=== PATIENT | female | born 1950 | race Caucasian/White ===

== ENCOUNTER 2021-10-06 19:32 | Inpatient (IN) ==
[2021-10-06] MEDS ORDERED: 0.9 % Sodium Chloride 1,000 ML IVC ONE (21:09)
[2021-10-06 21:11] LABS: Albumin 3.5 g/dL (3.5-5.7); Calcium 8.8 mg/dL (8.6-10.3); Globulin 3.4 g/dL (2.4-3.5); Total Protein 6.9 g/dL (6.4-8.9)
[2021-10-06 21:19] LABS: Basophils % 0.2 %; Eosinophils % 0.2 %; Hematocrit 41.6 % (35.3-44.9); Hemoglobin 13.7 g/dL (11.5-15.4); Immature Granulocytes % 0.3 % (0-4); Lymphocytes # 0.9 K/mcL (0.6-4.6); Lymphocytes % 6.9 %; Mean Corpuscular HGB Conc 32.9 g/dL (31.6-35.5); Mean Corpuscular Hemoglobin 31.3 pg (28.0-33.3); Mean Platelet Volume 10.1 fL (9.4-12.4); Monocytes # 1.3 K/mcL (0.0-1.3); Monocytes % 10.7 %; Neutrophils # 10.2 K/mcL (1.6-8.9); Nucleated Red Blood Cells 0.2 /100 WBC (0); Platelet Count 255 K/mcL (140-400); Red Blood Count 4.38 M/mcL (3.82-4.97); Red Cell Distribution Width 15.9 % (11.5-14.5); Segmented Neutrophils % 81.7 %; White Blood Count 12.5 K/mcL (4.3-11.1)
[2021-10-06] MEDS ORDERED: Azithromycin 500 MG in 0.9 % Sodium Chloride 250 ML IVPB ONE (22:44)
[2021-10-06] MEDS ORDERED: cefTRIAXone 1,000 MG in Water for inj. (sterile) 10 ML IVP ONE (22:44)
[2021-10-06] MEDS ORDERED: Furosemide 20 MG/2 ML VIAL IVP ONE (23:22)
[2021-10-07 03:10] LABS: Bilirubin,Urine Negative (Negative); Blood,Urine Trace-intact (Negative); Clarity,Urine Clear (Clear); Color,Urine Yellow (Yellow); Glucose,Urine (UA) Normal (Normal); Ketones,Urine Negative (Negative); Leukocyte Esterase,Urine Small (Negative); Nitrite,Urine Negative (Negative); Protein,Urine 30 mg/dL (Neg-Trace); Specific Gravity,Urine 1.025 (1.010-1.025); Urobilinogen,Urine Normal (Normal)
[2021-10-07 03:15] LABS: Bacteria,Urine Few per hpf (None-Few); Hyaline Casts,Urine Few per lpf (None Seen); RBC,Urine 0-3 per hpf (0-3); Squamous Epithelial Cell,Urine Moderate per hpf (None-Few); Transitional Epi Cells,Urine Few per hpf (None-Few); WBC,Urine 15-30 per hpf (0-3)
[2021-10-07 08:37] LABS: Basophils % 0.2 %; Eosinophils % 0.3 %; Hematocrit 40.8 % (35.3-44.9); Hemoglobin 13.2 g/dL (11.5-15.4); Immature Granulocytes % 0.4 % (0-4); Lymphocytes # 0.8 K/mcL (0.6-4.6); Lymphocytes % 7.2 %; Mean Corpuscular HGB Conc 32.4 g/dL (31.6-35.5); Mean Corpuscular Hemoglobin 31.5 pg (28.0-33.3); Mean Corpuscular Volume 97.4 fL (83.0-100.0); Mean Platelet Volume 10.1 fL (9.4-12.4); Monocytes # 1.4 K/mcL (0.0-1.3); Monocytes % 11.9 %; Neutrophils # 9.4 K/mcL (1.6-8.9); Nucleated Red Blood Cells 0.3 /100 WBC (0); Platelet Count 226 K/mcL (140-400); Red Blood Count 4.19 M/mcL (3.82-4.97); Red Cell Distribution Width 16.1 % (11.5-14.5); White Blood Count 11.7 K/mcL (4.3-11.1)
[2021-10-07 09:07] LABS: Calcium 8.2 mg/dL (8.6-10.3); Potassium 3.5 mEq/L (3.5-5.1)
[2021-10-07] MEDS ORDERED: Naloxone 0.4 MG/ML INJ IVP PRN (13:20)
[2021-10-07] MEDS ORDERED: Ondansetron 4 MG/2 ML VIAL IVP PRN (13:31)
[2021-10-07] MEDS ORDERED: Acetaminophen 325 MG TABLET PO PRN (13:31)
[2021-10-07] MEDS ORDERED: Perflutren Lipid Microsphere 1.3 ML in 0.9 % Sodium Chloride 8.7 ML IVP PRN (13:36)
[2021-10-07] MEDS: Ipratropium/Albuterol Neb 3 ML IH SCH ×2 (14:55→19:46)
[2021-10-07] MEDS: Furosemide 20 MG/2 ML VIAL IVP SCH ×2 (15:20→21:00)
[2021-10-07 20:15] LABS: Adenovirus Not Detected (Not Detect); Bordetella Pertussis Not Detected (Not Detect); Chlamydophila pneumoniae Not Detected (Not Detect); Coronavirus 229E Not Detected (Not Detect); Coronavirus HKU1 Not Detected (Not Detect); Coronavirus NL63 Not Detected (Not Detect); Coronavirus OC43 Not Detected (Not Detect); Human Metapneumovirus Not Detected (Not Detect); Human Rhinovirus/Enterovirus Not Detected (Not Detect); Influenza A Subtype 2009 H1 Not Detected (Not Detect); Influenza B Not Detected (Not Detect); Mycoplasma pneumoniae Not Detected (Not Detect); Parainfluenza Virus 1 Not Detected (Not Detect); Parainfluenza Virus 2 Not Detected (Not Detect); Parainfluenza Virus 3 Not Detected (Not Detect); Parainfluenza Virus 4 Not Detected (Not Detect); Respiratory Syncytial Virus Not Detected (Not Detect); SARS-CoV-2 Not Detected (Not Detect)
[2021-10-07] MEDS: Azithromycin 250 MG TABLET PO SCH (20:59)
[2021-10-07] MEDS ORDERED: cefTRIAXone 1,000 MG in Water for inj. (sterile) 10 ML IVP SCH (21:00)
[2021-10-07] MEDS ORDERED: cefTRIAXone 1,000 MG in 0.9 % Sodium Chloride Mini Bag 100 ML IVP SCH (23:00)
[2021-10-08] MEDS: Ipratropium/Albuterol Neb 3 ML IH SCH ×5 (00:22→18:09)
[2021-10-08 06:17] LABS: Hematocrit 40.3 % (35.3-44.9); Mean Corpuscular HGB Conc 32.3 g/dL (31.6-35.5); Mean Corpuscular Hemoglobin 31.3 pg (28.0-33.3); Mean Corpuscular Volume 96.9 fL (83.0-100.0); Mean Platelet Volume 10.3 fL (9.4-12.4); Platelet Count 232 K/mcL (140-400); Red Blood Count 4.16 M/mcL (3.82-4.97); White Blood Count 13.4 K/mcL (4.3-11.1)
[2021-10-08 06:38] LABS: Chol/HDL Ratio 2.7 (0-4.9); Magnesium 2.8 mg/dL (1.6-2.6); Potassium 3.3 mEq/L (3.5-5.1)
[2021-10-08] MEDS ORDERED: lisinopriL 20 MG TABLET PO SCH (09:00)
[2021-10-08] MEDS: Furosemide 20 MG/2 ML VIAL IVP SCH (10:18)
[2021-10-08] MEDS: cephALEXin 500 MG CAPSULE PO SCH ×2 (16:25→19:55)
[2021-10-08] MEDS ORDERED: Ipratropium/Albuterol Neb 3 ML IH PRN (16:31)
[2021-10-08] MEDS: Azithromycin 250 MG TABLET PO SCH (19:55)
[2021-10-09] MEDS: lisinopriL 20 MG TABLET PO SCH (08:24)
[2021-10-09] MEDS: cephALEXin 500 MG CAPSULE PO SCH ×3 (08:26→20:57)
[2021-10-09] MEDS ORDERED: Furosemide 20 MG TABLET PO SCH (09:00)
[2021-10-09] MEDS: carvediloL 6.25 MG TABLET PO SCH (16:32)
[2021-10-09] MEDS: Azithromycin 250 MG TABLET PO SCH (20:57)
[2021-10-10] MEDS: *HR* Enoxaparin 30 MG/0.3 ML SYRINGE SQ SCH (05:03)
[2021-10-10 06:09] LABS: Basophils % 0.2 %; Eosinophils # 0.1 K/mcL (0.0-0.6); Eosinophils % 0.6 %; Hematocrit 40.5 % (35.3-44.9); Immature Granulocytes % 0.4 % (0-4); Lymphocytes # 1.4 K/mcL (0.6-4.6); Lymphocytes % 7.7 %; Mean Corpuscular HGB Conc 32.1 g/dL (31.6-35.5); Mean Corpuscular Hemoglobin 31.1 pg (28.0-33.3); Mean Corpuscular Volume 96.9 fL (83.0-100.0); Mean Platelet Volume 10.1 fL (9.4-12.4); Monocytes # 1.6 K/mcL (0.0-1.3); Neutrophils # 14.9 K/mcL (1.6-8.9); Platelet Count 201 K/mcL (140-400); Red Blood Count 4.18 M/mcL (3.82-4.97); Red Cell Distribution Width 16.3 % (11.5-14.5); Segmented Neutrophils % 82.1 %; White Blood Count 18.2 K/mcL (4.3-11.1)
[2021-10-10 06:37] LABS: Albumin 2.9 g/dL (3.5-5.7); Bilirubin,Total 0.7 mg/dL (0.3-1.0); Globulin 2.9 g/dL (2.4-3.5); Magnesium 2.8 mg/dL (1.6-2.6); Total Protein 5.8 g/dL (6.4-8.9)
[2021-10-10] MEDS: Aspirin 81 MG TAB.CHEW PO SCH (08:23)
[2021-10-10] MEDS: carvediloL 6.25 MG TABLET PO SCH (08:23)
[2021-10-10] MEDS: lisinopriL 20 MG TABLET PO SCH (08:23)
[2021-10-10] MEDS: cephALEXin 500 MG CAPSULE PO SCH ×3 (08:24→20:24)
[2021-10-10] MEDS ORDERED: FLU Vac QV 21-22 (6Month+)/PF 0.5 ML SYRINGE IM ONE (11:46)
[2021-10-10] MEDS ORDERED: 0.9 % Sodium Chloride 500 ML IVC ONE ×2 (13:30→17:28)
[2021-10-10] MEDS ORDERED: Simethicone 80 MG TAB.CHEW PO PRN (15:19)
[2021-10-10] MEDS ORDERED: 0.9 % Sodium Chloride 500 ML ONE (17:23)
[2021-10-10] MEDS: Azithromycin 250 MG TABLET PO SCH (20:24)
[2021-10-11] MEDS: *HR* Enoxaparin 30 MG/0.3 ML SYRINGE SQ SCH (04:14)
[2021-10-11] MEDS: Aspirin 81 MG TAB.CHEW PO SCH ×2 (08:18→09:49)
[2021-10-11] MEDS: lisinopriL 5 MG TABLET PO SCH ×2 (08:18→09:49)
[2021-10-11] MEDS: cephALEXin 500 MG CAPSULE PO SCH ×4 (08:18→19:41)
[2021-10-11] MEDS ORDERED: 0.9 % Sodium Chloride 1,000 ML IVC SCH (10:00)
[2021-10-11 14:55] LABS: Albumin 3.3 g/dL (3.5-5.7); Albumin/Globulin Ratio 0.9 (1.1-2.2); Bilirubin,Total 0.9 mg/dL (0.3-1.0); Calcium 8.3 mg/dL (8.6-10.3); Globulin 3.5 g/dL (2.4-3.5); Potassium 5.3 mEq/L (3.5-5.1); Total Protein 6.8 g/dL (6.4-8.9)
[2021-10-11] MEDS: 0.9 % Sodium Chloride 1,000 ML IVC SCH ×2 (16:13→19:39)
[2021-10-12] MEDS: *HR* Enoxaparin 30 MG/0.3 ML SYRINGE SQ SCH (05:22)
[2021-10-12] MEDS: 0.9 % Sodium Chloride 1,000 ML IVC SCH (05:22)
[2021-10-12] MEDS: Aspirin 81 MG TAB.CHEW PO SCH (07:59)
[2021-10-12] MEDS: cephALEXin 500 MG CAPSULE PO SCH ×2 (08:00→15:34)
[2021-10-12 15:11] LABS: Hematocrit 43.1 % (35.3-44.9); Hemoglobin 13.7 g/dL (11.5-15.4); Mean Corpuscular HGB Conc 31.8 g/dL (31.6-35.5); Mean Corpuscular Hemoglobin 31.1 pg (28.0-33.3); Mean Corpuscular Volume 97.7 fL (83.0-100.0); Mean Platelet Volume 9.8 fL (9.4-12.4); Platelet Count 265 K/mcL (140-400); Red Blood Count 4.41 M/mcL (3.82-4.97); Red Cell Distribution Width 16.9 % (11.5-14.5); White Blood Count 19.7 K/mcL (4.3-11.1)
[2021-10-12 15:30] LABS: Potassium 4.9 mEq/L (3.5-5.1)
[2021-10-12] MEDS: cefTRIAXone 1,000 MG in 0.9 % Sodium Chloride Mini Bag 100 ML IVP SCH ×2 (20:20→23:35)
[2021-10-13] MEDS: *HR* Enoxaparin 30 MG/0.3 ML SYRINGE SQ SCH (05:46)
[2021-10-13 06:09] LABS: Basophils % 0.2 %; Eosinophils % 0.2 %; Hematocrit 40.4 % (35.3-44.9); Hemoglobin 12.8 g/dL (11.5-15.4); Immature Granulocytes % 0.6 % (0-4); Lymphocytes # 1.7 K/mcL (0.6-4.6); Lymphocytes % 8.8 %; Mean Corpuscular HGB Conc 31.7 g/dL (31.6-35.5); Mean Corpuscular Hemoglobin 30.7 pg (28.0-33.3); Mean Corpuscular Volume 96.9 fL (83.0-100.0); Mean Platelet Volume 9.5 fL (9.4-12.4); Monocytes # 1.2 K/mcL (0.0-1.3); Monocytes % 6.4 %; Nucleated Red Blood Cells 0.2 /100 WBC (0); Platelet Count 244 K/mcL (140-400); Red Blood Count 4.17 M/mcL (3.82-4.97); Red Cell Distribution Width 16.7 % (11.5-14.5); Segmented Neutrophils % 83.8 %; White Blood Count 18.9 K/mcL (4.3-11.1)
[2021-10-13 06:14] LABS: Neutrophils # 15.8 K/mcL (1.6-8.9)
[2021-10-13 06:28] LABS: Albumin 2.7 g/dL (3.5-5.7); Albumin/Globulin Ratio 0.9 (1.1-2.2); Bilirubin,Total 0.8 mg/dL (0.3-1.0); Calcium 8.4 mg/dL (8.6-10.3); Globulin 2.9 g/dL (2.4-3.5); Magnesium 2.6 mg/dL (1.6-2.6); Potassium 4.6 mEq/L (3.5-5.1); Total Protein 5.6 g/dL (6.4-8.9)
[2021-10-13] MEDS ORDERED: Potassium Chloride Elixir 20 MEQ/15 ML UDC PO SCH (09:00)
[2021-10-13] MEDS ORDERED: lisinopriL 5 MG TABLET PO SCH (09:00)
[2021-10-13 09:10] LABS: Estimated Average Glucose 128 mg/dl; Hemoglobin A1C 6.1 %
[2021-10-13] MEDS: cefTRIAXone 1,000 MG in 0.9 % Sodium Chloride Mini Bag 100 ML IVP SCH (09:10)
[2021-10-13] MEDS: Aspirin 81 MG TAB.CHEW PO SCH (09:13)
[2021-10-13 22:32] LABS: Bilirubin,Urine Negative (Negative); Blood,Urine Trace-lysed (Negative); Clarity,Urine Clear (Clear); Color,Urine Yellow (Yellow); Glucose,Urine (UA) Normal (Normal); Ketones,Urine Negative (Negative); Leukocyte Esterase,Urine Small (Negative); Nitrite,Urine Negative (Negative); Protein,Urine 30 mg/dL (Neg-Trace); Specific Gravity,Urine 1.025 (1.010-1.025); Urobilinogen,Urine Normal (Normal)
[2021-10-13 22:35] LABS: Bacteria,Urine Moderate per hpf (None-Few); Squamous Epithelial Cell,Urine Few per hpf (None-Few); Transitional Epi Cells,Urine Many per hpf (None-Few)
[2021-10-14] MEDS: *HR* Enoxaparin 30 MG/0.3 ML SYRINGE SQ SCH (06:03)
[2021-10-14 07:53] VITALS: RESP 15
[2021-10-14] MEDS: cefTRIAXone 1,000 MG in 0.9 % Sodium Chloride Mini Bag 100 ML IVP SCH (09:37)
[2021-10-14] MEDS: Aspirin 81 MG TAB.CHEW PO SCH (09:37)
[2021-10-14 11:27] VITALS: BP 99/68; PULSE 91; TEMP 97.5; O2SAT 92
[2021-10-14 11:31] LABS: Hematocrit 40.9 % (35.3-44.9); Hemoglobin 12.7 g/dL (11.5-15.4); Mean Corpuscular HGB Conc 31.1 g/dL (31.6-35.5); Mean Corpuscular Hemoglobin 31.1 pg (28.0-33.3); Mean Platelet Volume 9.9 fL (9.4-12.4); Platelet Count 216 K/mcL (140-400); Red Blood Count 4.09 M/mcL (3.82-4.97); White Blood Count 21.5 K/mcL (4.3-11.1)
[2021-10-14 11:52] LABS: Calcium 8.4 mg/dL (8.6-10.3); Potassium 4.7 mEq/L (3.5-5.1)
== END 2021-10-14 12:22 | disposition other institution (70) ==
LOC: EMEROOGRE 19:32 → INPGRE 19:32
PROVIDERS: ADMIT Family Medicine; ATTEND Family Medicine

== ENCOUNTER 2021-10-13 17:48 | Inpatient (IN) ==
[2021-10-14] MEDS ORDERED: Acetaminophen 325 MG TABLET PO PRN (11:31)
[2021-10-14] MEDS ORDERED: Ipratropium/Albuterol Neb 3 ML IH PRN (11:33)
[2021-10-14] MEDS ORDERED: Ondansetron 4 MG/2 ML VIAL IVP PRN (11:34)
[2021-10-14] MEDS ORDERED: Naloxone 0.4 MG/ML INJ IVP PRN (11:34)
[2021-10-14] MEDS ORDERED: Simethicone 80 MG TAB.CHEW PO PRN (11:34)
[2021-10-15] MEDS: *HR* Enoxaparin 30 MG/0.3 ML SYRINGE SQ SCH (06:14)
[2021-10-15] MEDS: Aspirin 81 MG TAB.CHEW PO SCH (08:21)
[2021-10-15 15:54] LABS: Hematocrit 40.1 % (35.3-44.9); Hemoglobin 12.2 g/dL (11.5-15.4); Mean Corpuscular HGB Conc 30.4 g/dL (31.6-35.5); Mean Corpuscular Hemoglobin 30.7 pg (28.0-33.3); Mean Corpuscular Volume 100.8 fL (83.0-100.0); Mean Platelet Volume 9.6 fL (9.4-12.4); Platelet Count 255 K/mcL (140-400); Red Blood Count 3.98 M/mcL (3.82-4.97); Red Cell Distribution Width 16.9 % (11.5-14.5); White Blood Count 17.9 K/mcL (4.3-11.1)
[2021-10-15 16:13] LABS: Calcium 8.6 mg/dL (8.6-10.3); Potassium 4.5 mEq/L (3.5-5.1)
[2021-10-15] MEDS: Doxycycline 100 MG CAPSULE PO SCH (20:31)
[2021-10-16] MEDS: *HR* Enoxaparin 30 MG/0.3 ML SYRINGE SQ SCH (07:02)
[2021-10-16] MEDS: Doxycycline 100 MG CAPSULE PO SCH (09:54)
[2021-10-16] MEDS: Aspirin 81 MG TAB.CHEW PO SCH (09:54)
[2021-10-16] MEDS ORDERED: Linezolid 600 MG TABLET PO SCH (10:43)
[2021-10-16] MEDS: Ondansetron ODT 4 MG TAB.RAPDIS SL PRN (13:03)
[2021-10-16 13:31] LABS: Hematocrit 38.2 % (35.3-44.9); Hemoglobin 11.7 g/dL (11.5-15.4); Mean Corpuscular HGB Conc 30.6 g/dL (31.6-35.5); Mean Corpuscular Hemoglobin 30.5 pg (28.0-33.3); Mean Corpuscular Volume 99.7 fL (83.0-100.0); Mean Platelet Volume 9.3 fL (9.4-12.4); Platelet Count 245 K/mcL (140-400); Red Blood Count 3.83 M/mcL (3.82-4.97); Red Cell Distribution Width 17.2 % (11.5-14.5); White Blood Count 14.6 K/mcL (4.3-11.1)
[2021-10-16 13:58] LABS: Albumin 2.7 g/dL (3.5-5.7); Albumin/Globulin Ratio 0.9 (1.1-2.2); Bilirubin,Total 0.6 mg/dL (0.3-1.0); Calcium 8.3 mg/dL (8.6-10.3); Globulin 2.9 g/dL (2.4-3.5); Magnesium 2.3 mg/dL (1.6-2.6); Potassium 4.7 mEq/L (3.5-5.1); Total Protein 5.6 g/dL (6.4-8.9)
[2021-10-17 04:36] LABS: Hematocrit 36.1 % (35.3-44.9); Hemoglobin 11.1 g/dL (11.5-15.4); Mean Corpuscular HGB Conc 30.7 g/dL (31.6-35.5); Mean Corpuscular Hemoglobin 30.7 pg (28.0-33.3); Mean Corpuscular Volume 99.7 fL (83.0-100.0); Mean Platelet Volume 9.7 fL (9.4-12.4); Platelet Count 248 K/mcL (140-400); Red Blood Count 3.62 M/mcL (3.82-4.97); Red Cell Distribution Width 17.1 % (11.5-14.5); White Blood Count 14.3 K/mcL (4.3-11.1)
[2021-10-17 04:54] LABS: Albumin 2.7 g/dL (3.5-5.7); Albumin/Globulin Ratio 0.9 (1.1-2.2); Bilirubin,Total 0.5 mg/dL (0.3-1.0); Calcium 8.6 mg/dL (8.6-10.3); Globulin 2.9 g/dL (2.4-3.5); Magnesium 2.5 mg/dL (1.6-2.6); Potassium 5.2 mEq/L (3.5-5.1); Total Protein 5.6 g/dL (6.4-8.9)
[2021-10-17] MEDS: *HR* Enoxaparin 30 MG/0.3 ML SYRINGE SQ SCH (05:53)
[2021-10-17] MEDS: Aspirin 81 MG TAB.CHEW PO SCH (09:54)
[2021-10-17] MEDS: 0.9 % Sodium Chloride 1,000 ML IVC SCH ×2 (11:53→20:39)
[2021-10-17] MEDS: Ondansetron ODT 4 MG TAB.RAPDIS SL PRN (20:36)
[2021-10-18] MEDS: *HR* Enoxaparin 30 MG/0.3 ML SYRINGE SQ SCH (04:17)
[2021-10-18] MEDS: Aspirin 81 MG TAB.CHEW PO SCH (08:45)
[2021-10-18 09:33] LABS: Hemoglobin 11.3 g/dL (11.5-15.4); Mean Corpuscular HGB Conc 30.5 g/dL (31.6-35.5); Mean Corpuscular Hemoglobin 30.6 pg (28.0-33.3); Mean Corpuscular Volume 100.3 fL (83.0-100.0); Mean Platelet Volume 9.6 fL (9.4-12.4); Platelet Count 269 K/mcL (140-400); Red Blood Count 3.69 M/mcL (3.82-4.97); Red Cell Distribution Width 17.2 % (11.5-14.5)
[2021-10-18 10:10] LABS: Albumin 2.9 g/dL (3.5-5.7); Bilirubin,Total 0.7 mg/dL (0.3-1.0); Calcium 8.5 mg/dL (8.6-10.3); Globulin 2.9 g/dL (2.4-3.5); Magnesium 2.3 mg/dL (1.6-2.6); Potassium 4.6 mEq/L (3.5-5.1); Total Protein 5.8 g/dL (6.4-8.9)
[2021-10-18] MEDS: Ondansetron ODT 4 MG TAB.RAPDIS SL PRN (13:48)
[2021-10-18 21:19] LABS: Bilirubin,Urine Negative (Negative); Blood,Urine Moderate (Negative); Clarity,Urine Slightly Cloudy (Clear); Glucose,Urine (UA) Normal (Normal); Ketones,Urine Negative (Negative); Leukocyte Esterase,Urine Negative (Negative); Nitrite,Urine Negative (Negative); PH,Urine 5.5 pH Units (5.0-8.0); Protein,Urine 30 mg/dL (Neg-Trace); Specific Gravity,Urine 1.025 (1.010-1.025); Urobilinogen,Urine Normal (Normal)
[2021-10-18 21:23] LABS: Amorphous Sediment,Urine Few per hpf (None-Few); Color,Urine Yellow (Yellow); Squamous Epithelial Cell,Urine Few per hpf (None-Few)
[2021-10-19] MEDS: *HR* Enoxaparin 30 MG/0.3 ML SYRINGE SQ SCH (05:33)
[2021-10-19 05:52] LABS: Basophils # 0.1 K/mcL (0.0-0.2); Basophils % 0.4 %; Eosinophils % 0.3 %; Hematocrit 37.5 % (35.3-44.9); Hemoglobin 11.5 g/dL (11.5-15.4); Immature Granulocytes % 0.6 % (0-4); Lymphocytes # 1.6 K/mcL (0.6-4.6); Lymphocytes % 12.9 %; Mean Corpuscular HGB Conc 30.7 g/dL (31.6-35.5); Mean Corpuscular Hemoglobin 30.6 pg (28.0-33.3); Mean Corpuscular Volume 99.7 fL (83.0-100.0); Mean Platelet Volume 9.3 fL (9.4-12.4); Monocytes % 7.9 %; Neutrophils # 9.4 K/mcL (1.6-8.9); Nucleated Red Blood Cells 0.2 /100 WBC (0); Platelet Count 284 K/mcL (140-400); Red Blood Count 3.76 M/mcL (3.82-4.97); Red Cell Distribution Width 17.3 % (11.5-14.5); Segmented Neutrophils % 77.9 %; White Blood Count 12.1 K/mcL (4.3-11.1)
[2021-10-19 06:10] LABS: Calcium 8.7 mg/dL (8.6-10.3); Potassium 5.1 mEq/L (3.5-5.1)
[2021-10-19] MEDS: Aspirin 81 MG TAB.CHEW PO SCH (08:30)
[2021-10-20] MEDS: *HR* Enoxaparin 30 MG/0.3 ML SYRINGE SQ SCH (06:21)
[2021-10-20] MEDS: Aspirin 81 MG TAB.CHEW PO SCH (08:21)
[2021-10-20] MEDS ORDERED: Furosemide 20 MG/2 ML VIAL IVP SCH (10:45)
[2021-10-20] MEDS: Ondansetron ODT 4 MG TAB.RAPDIS SL PRN (12:22)
[2021-10-20 13:51] LABS: Basophils % 0.2 %; Eosinophils % 0.1 %; Hematocrit 39.4 % (35.3-44.9); Hemoglobin 12.3 g/dL (11.5-15.4); Immature Granulocytes % 0.4 % (0-4); Lymphocytes # 1.4 K/mcL (0.6-4.6); Lymphocytes % 11.3 %; Mean Corpuscular HGB Conc 31.2 g/dL (31.6-35.5); Mean Corpuscular Hemoglobin 30.7 pg (28.0-33.3); Mean Corpuscular Volume 98.3 fL (83.0-100.0); Mean Platelet Volume 9.6 fL (9.4-12.4); Monocytes # 0.8 K/mcL (0.0-1.3); Monocytes % 6.2 %; Neutrophils # 10.1 K/mcL (1.6-8.9); Nucleated Red Blood Cells 0.7 /100 WBC (0); Platelet Count 336 K/mcL (140-400); Red Blood Count 4.01 M/mcL (3.82-4.97); Red Cell Distribution Width 17.5 % (11.5-14.5); Segmented Neutrophils % 81.8 %; White Blood Count 12.3 K/mcL (4.3-11.1)
[2021-10-20 15:16] LABS: Albumin 2.9 g/dL (3.5-5.7); Bilirubin,Total 1.1 mg/dL (0.3-1.0); Magnesium 2.5 mg/dL (1.6-2.6); Potassium 5.5 mEq/L (3.5-5.1); Total Protein 5.9 g/dL (6.4-8.9); Troponin I 0.06 ng/mL (< 0.04)
[2021-10-20 19:28] VITALS: BP 119/82; PULSE 88; RESP 15; TEMP 97.6; O2SAT 97
== END 2021-10-20 21:31 | disposition short-term general hospital (02) ==
LOC: INPGRE 10-14 12:39
PROVIDERS: ADMIT Family Medicine; ATTEND Family Medicine